=== PATIENT | female | born 1990 | race Caucasian/White ===

== ENCOUNTER 2019-04-09 08:19 | Emergency (ER) | payer BC, MEDICAID, SELFPAY ==
[2019-04-09] VITALS (11 sets, daily range): BP systolic 83–104; BP diastolic 54–69; PULSE 110–128; RESP 18–19; TEMP 38.3; O2SAT 96–99
--- NOTE | ~2019-04-09 | XR_ITS ---
EXAMINATION: XR chest 2V DATE: 04/09/2019 08:55 INDICATION: Cough. Influenza A. TECHNIQUE: Frontal and lateral views of the chest were obtained. COMPARISON: CT abdomen and pelvis 09/16/2018 FINDINGS: The chest demonstrates clear lungs without pneumonia, pleural effusion, or pneumothorax. Th e heart size is normal. Surgical clips in the right upper quadrant are likely from cholecystectomy. IMPRESSION: 1. No acute cardiopulmonary disease. Reviewed, dictated and finalized at location A. Y EQUIPMENT SPECIALIST
--- NOTE | 2019-04-09 08:29 | ED.URI ---
HPI - URI/Sore Throat General Chief Complaint: Upper Respiratory Infection Stated Complaint: FLU LIKE S/S Time Seen by Provider: 04/09/19 08:28 Source: patient Mode of arrival: ambulatory Limitations: no limitations History of Present Illness HPI Narrative: A 28 y/o female presents to the ED with c/o flu sx. Pt states that on 04/07/19 she started to have sore throat, MUNOZ, fever, dizziness, congestion, sneezing, cough, and SOB. She notes that a hot shower helped alleviate her symptoms, but she fell and almost passed out. Her son was sick last week with similar symptoms. She denies vomiting, ABD pain, and decreased liquid intake. Pt did not get a flu shot this year. Her fever is 101F in the ED. She checked into the ED with another patient with similar symptoms. MD elicited complaint: other (Flu sx) Onset (ago): day(s) (2) Consistency: constant Relieving factors: other (Hot shower) Context: sick contacts Associated symptoms: fever, headache, nasal congestion, sore throat, cough, shortness of breath and other (Dizziness, sneezing) Related Data Allergies Allergy/AdvReac Type Severity Reaction Status Date / Time No Known Allergies Allergy Unknown Verified 04/09/19 08:44 Review of Systems Review of Systems: Narrative: CONSTITUTIONAL: Denies chills, decreased liquid intake, or sweats. Reports fever. EYES: Denies visual changes, redness, or discharge. ENT: Denies rhinorrhea or otalgia. Reports sore throat, sneezing, and congestion. CARDIOVASCULAR: Denies chest pain, palpitations, or edema. RESPIRATORY: Reports cough or dyspnea. GASTROINTESTINAL: Denies abdominal pain, nausea, vomiting, or diarrhea. GENITOURINARY: Denies dysuria or hematuria. SKIN: Denies rash or itching. MUSCULOSKELETAL: Denies back pain, joint pain, or myalgia. NEUROLOGIC: Denies numbness or weakness. Reports headache and dizziness. All systems reviewed & are unremarkable except as noted in HPI and below PMFSH Past Medical History Medical History (Updated 04/09/19 @ 11:54 by Leonila Cuevas MD) Anemia Anxiety Asthma Bowel obstruction Chronic back pain Crohn's disease Depression Ulcer Surgical History Surgical History (Updated 04/09/19 @ 08:34 by Greta Figueroa) History of cholecystectomy History of removal of cyst Lymphadenectomy of arm Family History Family History Other Acute myocardial infarction Social History Social History (Updated 04/09/19 @ 08:34 by Greta Figueroa) Smoking status: Never smoker Alcohol intake: never Gender identity (if verbalized by the patient): Female Exam Narrative: Exam Narrative: GENERAL: Well-appearing, well-nourished, and in no acute distress. HEAD: Normocephalic, atraumatic. EYES: PERRLA and EOMI. ENT: Nares clear,+ rhinorrhea, + congestion, no epistaxis. Mucous membranes dry. NECK: Supple. CHEST: Clear to auscultation. No respiratory distress. HEART: tachycardic rate and rhythm. No murmur heard. Normal peripheral pulses. ABDOMEN: Soft, nontender, nondistended, normal active bowel sounds. EXTREMITIES: Normal range of motion. No edema. SKIN: Warm, dry, no rash. NEURO: No focal deficits. Alert and oriented X3. Course Course Emergency Course: Patient presented for evaluation of cough, cold symptoms. Patient states she has had not had anything to eat and drink in over 2 days. At the time of initial assessment, ABCs are intact and vital signs are notable for fever, borderline hypotension and tachycardia. Patient is positive for influenza A. No lactic acidosis. No UTI. No evidence of pneumonia on chest x-ray. No severe leukocytosis. Patient is hypokalemic and was given oral potassium replacement and oral able to tolerate this without vomiting. Patient was given 3 L of fluid, had improvement in her tachycardia, had maps that were consistently above 65. Patient felt improved at the time of reassessment, tolerating oral intake, no lightheadedness, no dizziness.
[2019-04-09] MEDS: SODIUM CHLORIDE 0.9% IV 1,000 ML 999 ML IV CONT ×3 (09:08→10:18)
[2019-04-09 09:10] LABS: Basophils Percent Auto 0.7 % (0.2-1.2); Hematocrit 29.7 % (37.0-47.0); Hemoglobin 8.2 g/dL (12.0-15.0); Immature Granulocyte Absolute 0.01 K/mm3 (0.00-0.031); Immature Granulocyte Percent A 0.2 % (0-0.5); Lymphocytes Absolute Auto 0.49 K/mm3 (0.9-3.2); Mean Corpuscular HGB Conc 27.6 g/dl (32-36); Mean Corpuscular Hemoglobin 18.2 pg (26-34); Mean Platelet Volume 9.7 fl (7.4-10.4); Monocytes Absolute Auto 0.8 K/mm3 (0.1-0.6); Neutrophils Absolute Auto 3.2 K/mm3 (1.3-6.7); Neutrophils Percent Auto 71.1 % (45.5-73.1); Platelet Count Result 332 k/mm3 (150-375); Red Cell Distribution Width 17.7 % (11.5-14.5); White Blood Count 4.5 K/mm3 (4.5-10.0)
[2019-04-09 09:21] LABS: Blood Urea Nitrogen 10 mg/dL (7-17); Calcium 8.3 mg/dL (8.4-10.2); Carbon Dioxide 22 mmol/L (22-30); Chloride 101 mmol/L (98-107); Estimated Glomerular Filt Rate > 60; Glucose 148 mg/dL (65-105); Potassium 2.9 mmol/L (3.4-5.0); Sodium 135 mmol/L (137-145)
[2019-04-09] MEDS: ONDANSETRON INJ 4 MG/2 ML VIAL IV PUSH (09:30)
[2019-04-09 09:36] LABS: Platelet Estimate Adequate (Adequate)
[2019-04-09 09:37] LABS: Hypochromasia 2+ (NORMAL)
[2019-04-09 09:38] LABS: Ovalocytes 2+ (NORMAL); Target Cells 1+ (NORMAL)
[2019-04-09 09:39] LABS: Stomatocytes 1+ (NORMAL)
[2019-04-09] MEDS: POTASSIUM CHLORIDE 20 MEQ PACKET (FOR LIQUID) 40 MEQ PO (10:18)
[2019-04-09 10:49] LABS: Add Urine Microscopic? YES; Appearance Urine Clear (Clear); Bacteria Urine Trace /hpf; Bilirubin Urine Negative (Negative); Blood Urine 3+ (Negative); Color Urine Yellow (Yellow); Glucose Urine UA Negative (Negative); Ketones Urine Negative (Negative); Leukocyte Esterase Ur Negative LEU/UL (Negative); Mucus Urine Rare /lpf; Nitrate Urine Negative (Negative); Protein Urine Negative (Negative); RBC Urine 0-2 /hpf (0-2); Specific Grav Ur 1.012 (1.001-1.035); Squamous Epithelial Cell Urine Moderate /hpf (Few); Urobilinogen Urine Negative mg/dL (<2.0); WBC Urine 0-3 /hpf
[2019-04-09 11:16] LABS: Lactic Acid Reflex < 0.5 mmol/L (0.7-2.1)
--- NOTE | 2019-04-09 12:00 | PC.NURSE ---
Pt received 1000 ml of fluids that stopped at 1115.
== END 2019-04-09 11:58 | disposition home or self-care (01) ==
PROVIDERS: Emergency Provider Emergency Medicine
DX: J10.1 Influenza due to other identified influenza virus with other respiratory manifestations (principal); D64.9 Anemia, unspecified; J45.909 Unspecified asthma, uncomplicated; K50.90 Crohn's disease, unspecified, without complications; E86.0 Dehydration
CPT/HCPCS: 36415; 71046; 80048; 81001; 81025; 83605; 85025; 87040; 87804; 96361; 96365; 96375; 99284; A9270; J0131; J2405; J7030

== ENCOUNTER 2019-06-23 16:38 | Outpatient (CLI) | payer BC, MEDICAID, SELFPAY ==
[2019-06-23 17:26] LABS: Basophils Absolute Auto 0.1 K/mm3 (0.0-0.1); Basophils Percent Auto 0.7 % (0.2-1.2); Eosinophils Absolute Auto 0.1 K/mm3 (0-0.3); Eosinophils Percent Auto 0.8 % (0-4.4); Hematocrit 32.6 % (37.0-47.0); Hemoglobin 9.4 g/dL (12.0-15.0); Immature Granulocyte Absolute 0.01 K/mm3 (0.00-0.031); Immature Granulocyte Percent A 0.1 % (0-0.5); Lymphocytes Absolute Auto 1.38 K/mm3 (0.9-3.2); Lymphocytes Percent Auto 19.3 % (18.3-44.2); Mean Corpuscular HGB Conc 28.8 g/dl (32-36); Mean Corpuscular Hemoglobin 20.8 pg (26-34); Mean Corpuscular Volume 72.1 fl (80-100); Mean Platelet Volume 9.2 fl (7.4-10.4); Monocytes Absolute Auto 0.7 K/mm3 (0.1-0.6); Monocytes Percent Auto 9.8 % (2.6-8.5); Neutrophils Percent Auto 69.3 % (45.5-73.1); Platelet Count Result 339 k/mm3 (150-375); Red Blood Count 4.52 M/mm3 (4.2-5.4); Red Cell Distribution Width 18.6 % (11.5-14.5); White Blood Count 7.2 K/mm3 (4.5-10.0)
[2019-06-23 17:34] LABS: Hypochromasia 1+ (NORMAL); Ovalocytes 1+ (NORMAL); Platelet Estimate Adequate (Adequate)
[2019-06-23 17:44] LABS: Alanine Aminotransferase 11 U/L (4-35); Albumin Level 3.9 g/dL (3.5-5.1); Alkaline Phosphatase 118 U/L (38-126); Aspartate Amino Transferase 19 U/L (14-36); Bilirubin,Total < 0.1 mg/dL (0.2-1.3); Blood Urea Nitrogen 8 mg/dL (7-17); CRP 0.6 mg/dL (<1.0); Calcium 8.4 mg/dL (8.4-10.2); Carbon Dioxide 27 mmol/L (22-30); Chloride 105 mmol/L (98-107); Estimated Glomerular Filt Rate > 60; Glucose 90 mg/dL (65-105); Potassium 4.2 mmol/L (3.4-5.0); Sodium 137 mmol/L (137-145)
[2019-06-23 18:26] LABS: Vitamin D 25 Hydroxy 24.1 ng/mL
[2019-06-23 18:41] LABS: Ferritin 7.49 ng/mL (6.24-137); Iron 29 ug/dL (37-170); Percent Iron Saturation 7 % (20-50)
[2019-06-23 19:27] LABS: Hepatitis B Surface Antigen Negative (Negative)
[2019-06-23 19:32] LABS: Hepatitis B Surface Anti Res Negative
[2019-06-28 02:25] LABS: Hepatitis B Core Ab Total Nonreactive (Nonreactive)
== END 2019-06-23 16:39 | disposition home or self-care (01) ==
DX: K50.012 Crohn's disease of small intestine with intestinal obstruction (principal); Z79.899 Other long term (current) drug therapy
CPT/HCPCS: 36415; 80053; 82306; 82607; 82728; 83540; 83550; 85025; 86140; 86704; 86706; 87340

== ENCOUNTER 2019-06-27 11:18 | Emergency (ER) | payer BC, MEDICAID, SELFPAY ==
[2019-06-27 11:20] VITALS: BP 104/75; PULSE 110; RESP 18; TEMP 37.2; O2SAT 100
[2019-06-27] MEDS: predniSONE 20 MG TABLET 60 MG PO (11:39)
--- NOTE | 2019-06-27 12:00 | ED.GENADULT ---
HPI - General Adult General Chief complaint: Upper Respiratory Infection <Yoel Bucio PA-C - Last Filed: 06/27/19 12:07> Stated complaint: st <Yoel Bucio PA-C - Last Filed: 06/27/19 12:07> Time Seen by Provider: 06/27/19 11:19 <MAN Nettles Last Filed: 06/27/19 12:07> Source: patient <MAN Nettles Last Filed: 06/27/19 12:07> Mode of arrival: ambulatory <MAN Nettles Last Filed: 06/27/19 12:07> Limitations: no limitations <Yoel Bucio PA-C - Last Filed: 06/27/19 12:07> History of Present Illness HPI narrative: Patient is a 28-year-old female who presents to emergency department for evaluation of sore throat noted is an aching pain worse with swallowing that is been present for the last several days patient also notes some mild ear discomfort patient on arrival notes that she has tried [id number] medications with some improvement of discomfort patient denies vomiting diarrhea or other URI symptoms or sick contacts and on arrival is resting comfortably in the room in no distress <Yoel Bucio PA-C - Last Filed: 06/27/19 12:07> Related Data Allergies/adverse reactions: Allergies Allergy/AdvReac Type Severity Reaction Status Date / Time No Known Allergies Allergy Unknown Verified 06/27/19 11:31 <Yoel Bucio PA-C - Last Filed: 06/27/19 12:07> Review of Systems Review of Systems: All systems reviewed & are unremarkable except as noted in HPI and below <Yoel Bucio PA-C - Last Filed: 06/27/19 12:07> PMF Past Medical History Medical History: Medical History Anemia Anxiety Asthma Bowel obstruction Chronic back pain Crohn's disease Depression Ulcer <MAN Nettles Last Filed: 06/27/19 12:07> Surgical History Surgical History: Surgical History History of cholecystectomy History of removal of cyst Lymphadenectomy of arm <Yoel Bucio PA-C - Last Filed: 06/27/19 12:07> Social History Social History: Social History Smoking status: Never smoker Alcohol intake: never Gender identity (if verbalized by the patient): Female <Yoel Bucio PA-C - Last Filed: 06/27/19 12:07> Exam Narrative: Exam Narrative: GENERAL: Well-appearing, well-nourished, and in no acute distress. HEAD: Normocephalic, atraumatic. EYES: PERRLA and EOMI. ENT: Nares clear, no rhinorrhea or epistaxis. Mucous membranes moist. Oropharynx with tonsillar hypertrophy and without exudate or other lesions. Bilateral TMs pearly wilson nonbulging NECK: Supple. Shotty anterior adenopathy CHEST: Clear to auscultation. No respiratory distress. No wheezes rales or rhonchi HEART: Regular rate and rhythm. No murmur heard. EXTREMITIES: Normal range of motion. No edema. SKIN: Warm, dry, no rash. NEURO: No focal deficits. Alert and oriented x3. Cranial nerves II through XII grossly intact PSYCH: Normal mood and affect. <MAN Nettles Last Filed: 06/27/19 12:07> Course Course Emergency Course: Patient aware of case findings treatment plan and diagnosis agreeing to follow-up as directed patient diagnosed with strep pharyngitis <MAN Nettles Last Filed: 06/27/19 12:07> Vital Signs Vital signs: Vital Signs Temperature 37.2 C 06/27/19 11:20 Pulse Rate 110 H 06/27/19 11:20 Respiratory Rate 18 06/27/19 11:20 Blood Pressure 104/75 06/27/19 11:20 Pulse Oximetry 100 06/27/19 11:20 Temperature 37.2 C 06/27/19 11:20 Pulse Rate 95 06/27/19 12:26 Respiratory Rate 18 06/27/19 12:26 Blood Pressure 110/77 06/27/19 12:26 Pulse Oximetry 100 06/27/19 12:26 <MAN Nettles Last Filed: 06/27/19 12:07> Vital Signs Temperature 37.2 C 06/27/19 11:20
[2019-06-27 12:26] VITALS: BP 110/77; PULSE 95; RESP 18; O2SAT 100
== END 2019-06-27 12:32 | disposition home or self-care (01) ==
PROVIDERS: Emergency Provider Emergency Medicine
DX: J02.0 Streptococcal pharyngitis (principal); Z86.2 Personal history of diseases of the blood and blood-forming organs and certain disorders involving the immune mechanism; K50.90 Crohn's disease, unspecified, without complications; J45.909 Unspecified asthma, uncomplicated
CPT/HCPCS: 87880; 99283; J7512

== ENCOUNTER 2020-04-12 11:32 | Emergency (ER) | payer OTHER, SELFPAY ==
[2020-04-12 11:45] VITALS: BP 107/69; PULSE 97; RESP 16; TEMP 37.1; O2SAT 100
--- NOTE | 2020-04-12 12:19 | ED.EYEPROB ---
HPI - Eye Problem General Chief complaint: Eye Problems Stated complaint: eye redness Source: patient Mode of arrival: ambulatory Limitations: no limitations History of Present Illness HPI Narrative: Patient is a 29-year-old female who presents complaining of right eye pain. Patient reports right eye redness x1 week. She reports increased pain x1 day. Reports pain level of 7/10 with eye movement. She reports a history of iritis in 2019. She denies blurred vision at this time. She denies injury. chief complaint: eye pain and eye redness Related Data Allergies Allergy/AdvReac Type Severity Reaction Status Date / Time No Known Allergies Allergy Unknown Verified 06/27/19 11:31 Review of Systems Review of Systems: Narrative: CONSTITUTIONAL: Denies fever, chills, or sweats. EYES: Right eye pain and redness ENT: Denies rhinorrhea, congestion, sore throat, or otalgia. CARDIOVASCULAR: Denies chest pain, palpitations, or edema. RESPIRATORY: Denies cough or dyspnea. GASTROINTESTINAL: Denies abdominal pain, nausea, vomiting, or diarrhea. GENITOURINARY: Denies dysuria or hematuria. SKIN: Denies rash or itching. MUSCULOSKELETAL: Denies back pain, joint pain, or myalgia. NEUROLOGIC: Denies headache, numbness, dizziness, or weakness. PSYCHIATRIC: Denies anxiety or depression. [facility] Past Medical History Medical History (Updated 04/12/20 @ 13:34 by JULISSA Okeefe) Anemia Anxiety Asthma Bowel obstruction Chronic back pain Crohn's disease Depression Iritis Ulcer Surgical History Surgical History History of cholecystectomy History of removal of cyst Lymphadenectomy of arm Family History Family History Other Acute myocardial infarction Social History Social History (Updated 04/12/20 @ 13:25 by JULISSA Okeefe) Smoking status: Never smoker Alcohol intake: never Substance use: never Gender identity (if verbalized by the patient): Female Comments At the time of signature, I have reviewed and agree with nursing past medical, surgical, social, and family history unless otherwise noted. Please see nursing chart for further information. There is no relevant family history pertinent to the presenting complaint. Exam Narrative: Exam Narrative: GENERAL: Well-appearing, well-nourished, and in no acute distress. HEAD: Normocephalic, atraumatic. EYES: Erythema to right eye, no purulent drainage or tearing noted. PERRL ENT: Mucous membranes pink and moist. CHEST: No respiratory distress. HEART: Regular rate and rhythm. EXTREMITIES: Normal range of motion. No edema. SKIN: Warm, dry, no rash. NEURO: No focal deficits. Alert and oriented x3. Gait steady. PSYCH: Normal affect. No signs of depression or anxiety. Course Vital Signs Vital signs: Vital Signs Temperature 37.1 C 04/12/20 11:45 Pulse Rate 97 04/12/20 11:45 Respiratory Rate 16 04/12/20 11:45 Blood Pressure 107/69 04/12/20 11:45 Pulse Oximetry 100 04/12/20 11:45 Temperature 37.1 C 04/12/20 11:45 Pulse Rate 97 04/12/20 11:45 Respiratory Rate 16 04/12/20 11:45 Blood Pressure 107/69 04/12/20 11:45 Pulse Oximetry 100 04/12/20 11:45 Reviewed Transfer Transfered to: [facility] (Ophthalmology clinic) Transfer rationale: Higher level of care Accepting physician: Dr. Arteaga Transfer comments: Patient was transferred by private vehicle. Patient is aware that she is going directly to ophthalmology clinic to see Dr. Arteaga. Patient is stable for discharge and transfer to [place] [facility] for further evaluation. MDM - Eye Problem MDM Narrative Medical decision making narrative: Patient most likely has iritis of right eye, right history of same in 01/26. Patient to be seen by [facility] at this time. Spoke with Dr. Arteaga who reports that she will see patient if patient comes direct
--- NOTE | 2020-04-12 12:53 | PC.NURSE ---
Spoke to [facility]. [facility] refuses to take patient due to insurance, opthomology resident paged and will return call to discuss patient disposition with DRUM BUILDER,
== END 2020-04-12 13:22 | disposition short-term general hospital (02) ==
PROVIDERS: Emergency Provider Nurse Practitioner
DX: H20.00 Unspecified acute and subacute iridocyclitis (principal); D64.9 Anemia, unspecified; J45.909 Unspecified asthma, uncomplicated; K50.90 Crohn's disease, unspecified, without complications
CPT/HCPCS: 99212; G0463

== ENCOUNTER 2021-01-12 20:58 | Observation (INO) | payer BC, OTHER, SELFPAY ==
--- NOTE | ~2021-01-12 | XR_ITS ---
EXAMINATION: XR abdomen/kub 1V DATE: 01/14/2021 08:05 INDICATION: Partial small bowel obstruction. TECHNIQUE: A supine view of the abdomen on 2 radiographs was obtained. COMPARISON: CT abdomen and pelvis 01/13/2021 FINDINGS: There are dilated loops of small bowel. The colon is normal in caliber. Surgical clips in t he right upper quadrant are likely from cholecystectomy. IMPRESSION: 1. Persistently dilated small bowel, consistent with partial small bowel obstruction. Reviewed, dictated and finalized at location A. O TAPE LIBRARIAN IMPRESSION: 1. Persistently dilated small bowel, consistent with partial small bowel obstru ction.
--- NOTE | ~2021-01-12 | CT_ITS ---
EXAMINATION: CT abdomen pelvis w con DATE: 01/13/2021 00:29 INDICATION: Diffuse abdominal pain, nausea and vomiting. Crohn's disease. TECHNIQUE: Computed tomography (CT) of the abdomen and pelvis was performed with 100 mL Omnipaque-350 intravenous contrast. Automated exposure control and iterative reconstruction technique were employe d. The dose-length product was 237.85 mGy-cm. COMPARISON: 09/16/2018 FINDINGS: Lung bases are clear. Heart size is normal. No pericardial or pleural effusion. Cholecystectomy clips at the gallbladder fossa. Liver, spleen, pancreas and bilateral adrenal glands and kidneys are martinez l. There is prominent wall thickening, mucosal enhancement and hyperemia to vasa recta involving the distal 30 cm the ileum consistent with flare of known Crohn's disease. There is mild elevation of mul tiple loops of more proximal gas and fluid-filled ileum which could relate to ileus or partial small bowel obstruction related to strictures of the more distal ileum. Fluid throughout the otherwise unre markable colon consistent with diarrhea. Bladder, uterus and bilateral adnexa are unremarkable. Small amount of ascites in the pelvis and at the caudal tip of the right hepatic lobe. No abscess or free intraperitoneal gas. No pathologically enlarged abdominal or pelvic lymphadenopathy. Relatively symme tric bilateral enteropathic sacroiliitis. Bones are otherwise unremarkable. IMPRESSION: 1. Ileus versus partial small bowel obstruction proximal to a 30 cm length of terminal ileitis with p ossible stricture consistent with flare of known history of Crohn's disease. 2. Bilateral enteropathic sacroiliitis. Reviewed, dictated and finalized at location B. IGINAL LIAISON OFFICER IMPRESSION: 1. Ileus versus partial small bowel obstruction proximal to a 30 cm length of t erminal ileitis with possible stricture consistent with flare of known history of Crohn's disease. 2. Bilateral enteropathic sacroiliitis.
[2021-01-12 21:07] VITALS: BP 117/80; PULSE 129; RESP 20; TEMP 36.4; O2SAT 95
--- NOTE | 2021-01-12 23:08 | ECG_ITS ---
Measurements Intervals [place] Rate: 75 P: 13 WY: 142 QRS: 62 QRSD: 80 T: 42 QT: 350 QTc: 393 Interpretive Statements SINUS RHYTHM NORMAL ECG Electronically Signed On 01-13-2021 5:36:27 [employer]OKERAGE OFFICE MANAGER by Sudhir Paris D.O.
--- NOTE | 2021-01-12 23:23 | ED.ABDPAIN ---
HPI - Abdominal Pain General Chief Complaint: Abdominal Pain Stated Complaint: I'm having a crohn's flare up - no GI Time Seen by Provider: 01/12/21 22:59 Source: patient History of Present Illness HPI narrative: Patient presents with nausea vomiting abdominal pain. Ports symptoms started last night. Symptoms appear to be getting worse so she came to the ER for evaluation. Abdominal pain is achy, constant, no clear aggravating or relieving factors, no radiation. Denies any blood or bile or melena stool or emesis. Reports history of Crohn's disease and is unsure if she is having a Crohn's flare. She isn't currently seeing a GI physician. Related Data Home Medications Medication Instructions Recorded Confirmed No Home Medications 01/12/21 01/12/21 Allergies Allergy/AdvReac Type Severity Reaction Status Date / Time No Known Allergies Allergy Unknown Verified 01/13/21 06:47 Review of Systems Review of Systems: CONSTITUTIONAL: Denies fever, chills, or sweats. EYES: Denies visual changes, redness, or discharge. ENT: Denies rhinorrhea, congestion, sore throat, or otalgia. CARDIOVASCULAR: Denies chest pain, palpitations, or edema. RESPIRATORY: Denies cough or dyspnea. GASTROINTESTINAL: Reports abdominal pain, nausea, vomiting, diarrhea GENITOURINARY: Denies dysuria or hematuria. SKIN: Denies rash or itching. MUSCULOSKELETAL: Denies back pain, joint pain, or myalgia. NEUROLOGIC: Denies headache, numbness, dizziness, or weakness. PSYCHIATRIC: Denies anxiety or depression. All systems reviewed & are unremarkable except as noted in HPI and below PMFSH Past Medical History Medical History Anemia Anxiety Asthma Bowel obstruction Chronic back pain Crohn's disease Depression Iritis Ulcer Surgical History Surgical History History of cholecystectomy History of removal of cyst Lymphadenectomy of arm Family History Family History (Updated 01/13/21 @ 06:51 by Genaro Morales RN) Grandparent Acute myocardial infarction Social History Social History Smoking status: Current every day smoker Tobacco type: e-cigarettes/vaping Alcohol intake: never Substance use: never Gender identity (if verbalized by the patient): Female Spiritual care concerns: No Exam Narrative: GENERAL: Well-appearing, well-nourished, and in no acute distress. HEAD: Normocephalic, atraumatic. EYES: PERRLA and EOMI. ENT: Nares clear, no rhinorrhea or epistaxis. Mucous membranes moist. NECK: Supple. No masses. No JVD CHEST: Clear to auscultation. No respiratory distress. No wheezes rales or rhonchi HEART: Regular rate and rhythm. No murmur heard. Normal peripheral pulses. ABDOMEN: Minimal pain with deep palpation diffusely no rebound or guarding soft, nondistended. EXTREMITIES: Normal range of motion. No edema. SKIN: Warm, dry, no rash. NEURO: No focal deficits. Alert and oriented x3. PSYCH: Normal mood and affect. Course Reevaluation(s) Reevaluation #1: Patient is resting comfortably symptoms improved but she continues to have abdominal pain nausea is also improved. Labs imaging reviewed with patient. CT was concerning for small bowel obstruction plan to admit patient for further monitoring. Date: 01/13/21 Time: 03:59 Consultations Consultation #1: Case discussed with general surgery onsite case manager recommended GI consultation. GI consulted. Plan to admit to the hospitalist team for further management. Date: 01/13/21 Time: 03:59 Vital Signs Vital signs: Vital Signs Temperature 36.4 C 01/12/21 21:07 Pulse Rate 129 H 01/12/21 21:07 Respiratory Rate 20 01/12/21 21:07 Blood Pressure 117/80 01/12/21 21:07 Pulse Oximetry 95 01/12/21 21:07 Temperature 36.4 C 01/12/21 21:07 Pulse Rate 77 01/13/21 05:53 Respiratory Rate 12 01/13/21 05:53
[2021-01-12] MEDS: ONDANSETRON INJ 4 MG/2 ML VIAL IV PUSH (23:37)
[2021-01-12] MEDS: SODIUM CHLORIDE 0.9% IV 1,000 ML 999 ML IV CONT (23:38)
[2021-01-12 23:40] LABS: Basophils Absolute Auto 0.1 K/mm3 (0.0-0.1); Basophils Percent Auto 0.6 % (0.2-1.2); Eosinophils Absolute Auto 0.1 K/mm3 (0-0.3); Eosinophils Percent Auto 0.8 % (0-4.4); Hematocrit 37.5 % (37.0-47.0); Hemoglobin 11.7 g/dL (12.0-15.0); Immature Granulocyte Absolute 0.03 K/mm3 (0.00-0.031); Immature Granulocyte Percent A 0.3 % (0-0.5); Lymphocytes Absolute Auto 1.25 K/mm3 (0.9-3.2); Lymphocytes Percent Auto 10.8 % (18.3-44.2); Mean Corpuscular HGB Conc 31.2 g/dl (32-36); Mean Corpuscular Hemoglobin 24.6 pg (26-34); Mean Corpuscular Volume 78.8 fl (80-100); Mean Platelet Volume 8.9 fl (7.4-10.4); Monocytes Absolute Auto 1.2 K/mm3 (0.1-0.6); Neutrophils Percent Auto 77.5 % (45.5-73.1); Platelet Count Result 391 k/mm3 (150-375); Red Blood Count 4.76 M/mm3 (4.2-5.4); Red Cell Distribution Width 16.1 % (11.5-14.5); White Blood Count 11.6 K/mm3 (4.5-10.0)
[2021-01-12 23:53] LABS: Add Urine Microscopic? YES; Appearance Urine Cloudy (Clear); Bilirubin Urine Negative (Negative); Blood Urine 3+ (Negative); Color Urine Yellow (Yellow); Glucose Urine UA Negative (Negative); Ketones Urine Trace mg/dL (Negative); Leukocyte Esterase Ur Trace LEU/UL (Negative); Mucus Urine Moderate /lpf; Nitrate Urine Negative (Negative); Protein Urine Negative (Negative); Specific Grav Ur 1.025 (1.001-1.035); Squamous Epithelial Cell Urine Many /hpf (Few); Urobilinogen Urine Negative mg/dL (<2.0)
[2021-01-12 23:57] LABS: Lactic Acid Reflex 0.7 mmol/L (0.7-2.1)
[2021-01-12 23:58] VITALS: BP 112/72; PULSE 86; RESP 14; O2SAT 100
[2021-01-12 23:59] LABS: Alanine Aminotransferase 18 U/L (4-35); Albumin Level 4.2 g/dL (3.5-5.1); Alkaline Phosphatase 125 U/L (38-126); Anion Gap 10 mmol/L (8-16); Aspartate Amino Transferase 23 U/L (14-36); Bilirubin,Total 0.5 mg/dL (0.2-1.3); Blood Urea Nitrogen 17 mg/dL (7-17); CRP 2.3 mg/dL (<1.0); Calcium 8.9 mg/dL (8.4-10.2); Carbon Dioxide 24 mmol/L (22-30); Chloride 100 mmol/L (98-107); Estimated CRCL calculation 82 ml/min; Estimated Glomerular Filt Rate > 60; Glucose 98 mg/dL (65-110); Lipase 112 U/L (23-300); Potassium 3.8 mmol/L (3.4-5.0); Sodium 134 mmol/L (137-145)
[2021-01-13 00:05] LABS: Erythrocyte Sedimentation Rate 23 mm/hr (0-20)
[2021-01-13 02:03] VITALS: BP 100/64; PULSE 74; RESP 17; O2SAT 98
[2021-01-13] MEDS: methylPREDNISolone SOD SUCC 125 MG VIAL IV PUSH (03:31)
[2021-01-13 03:33] VITALS: BP 117/71; PULSE 76; RESP 16; O2SAT 98
[2021-01-13 05:53] VITALS: BP 91/50; PULSE 77; RESP 12; O2SAT 99
--- NOTE | 2021-01-13 06:44 | ADMGEN ---
This patient, Marcelle Restrepo, was admitted to Medical Room 340-01. Patient/family oriented to hospital policies and general routines including ID bracelet, bed and alarms, visiting hours, pain management, procedures, bathroom and other care routines, personal items, smoking policy, room service/diet, and visiting hours. Information on how to activate the Rapid Response Team has been discussed. Patient/Family are encouraged to report perceived risks to care and to ask questions if they do not understand what they are told or what they should do.
[2021-01-13 06:55] VITALS: BMI 22.6
--- NOTE | 2021-01-13 08:19 | PM.IMHP ---
H&P: HPI History of Present Illness Date/Time: 01/13/21 08:19 Chief Complaint: Abdominal pain Narrative: Patient is a 22-year-old female who presents to the ED yesterday with nausea vomiting and abdominal pain. Symptoms started on Wednesday morning. She thought it was due to her periods however the location of the pain was more in the upper abdomen than lower. There was associated vomiting episode on Wednesday evening before she went to work that night. She also normally gets 3 bowel movements which are loose in consistency every day which is normal for her. On Wednesday afternoon she had multiple bowel movements which are watery without any blood approximately about 10 times during the day. While she was ready to go to work and Wednesday evening the payee pain got worse and hence came to the ER for evaluation. She reports the pain as achy and constant no aggravating or relieving factor no radiation. There is no blood in the stool. She reports history of Crohn's disease dated back 3 years ago when she came to the ER with similar abdominal pain and had a CT scan done which represented possible Crohn's disease. She has not regularly been following gastroenterologists since then though [facility] reports that she had a colonoscopy done 6 months ago in [facility] where it showed she had Crohn's disease however she has not followed up with a doctor since then. She denies any fever or chills Review of Systems Review of Systems: - CONSTITUTIONAL: Denies weight loss, fever and chills. - HEENT: Denies changes in vision and hearing - RESPIRATORY: Denies SOB and cough. - CV: Denies palpitations and CP. - GI: reports abdominal pain, nausea, vomiting and diarrhea. - : Denies dysuria and urinary frequency. - MSK: Denies myalgia and joint pain. - SKIN: Denies rash and pruritus. - NEUROLOGICAL: Denies headache and syncope. - PSYCHIATRIC: Denies recent changes in mood. Denies anxiety and depression. All systems reviewed & are unremarkable except as noted in HPI and below Constitutional: Constitutional: Reports fatigue and Reports weakness Neurologic: Reports weakness Endocrine: Endocrine: Reports fatigue [facility] Past Medical History Medical History (Updated 01/13/21 @ 09:36 by Santino Jarvis MD) Anemia Anxiety Asthma Bowel obstruction Chronic back pain Crohn's disease Depression Iritis Ulcer Surgical History Surgical History History of cholecystectomy History of removal of cyst Lymphadenectomy of arm Family History Family History (Updated 01/13/21 @ 06:51 by Genaro Morales RN) Grandparent Acute myocardial infarction Social History Social History Smoking status: Current every day smoker Tobacco type: e-cigarettes/vaping Alcohol intake: never Substance use: never Gender identity (if verbalized by the patient): Female Spiritual care concerns: No Meds Home Medications and Allergies Home Medications Medication Instructions Recorded Confirmed Type No Home Medications 01/12/21 01/12/21 History Allergies Allergy/AdvReac Type Severity Reaction Status Date / Time No Known Allergies Allergy Unknown Verified 01/13/21 06:47 Vital Signs Vital Signs - 24 hr 01/12/21 21:07 01/12/21 23:58 01/13/21 02:03 Temperature 97.6 F Pulse Rate 129 H 86 74 Respiratory Rate 20 14 17 Blood Pressure 117/80 112/72 100/64 Pulse Oximetry 95 100 98 01/13/21 03:33 01/13/21 05:53 Temperature Pulse Rate 76 77 Respiratory Rate 16 12 Blood Pressure 117/71 91/50 L Pulse Oximetry 98 99 Exam Narrative: GENERAL: Well-appearing, well-nourished, and in no acute distress. HEAD: Normocephalic, atraumatic. EYES: PERRLA and EOMI. ENT: Nares clear, no rhinorrhea or epistaxis. Mucous membranes moist. NECK: Supple. No masses. No JVD CHEST: Clear to auscultation. No respiratory
[2021-01-13] MEDS: SODIUM CHLORIDE 0.9% IV 1,000 ML 125 ML IV CONT (08:53)
[2021-01-13] MEDS: methylPREDNISolone SOD SUCC 125 MG VIAL 60 MG IV PUSH ×2 (11:41→16:45)
--- NOTE | 2021-01-13 12:36 | PM.CNGS ---
Assessment and Plan Assessment and plan (1) Partial small bowel obstruction: Code(s): K56.600 - Partial intestinal obstruction, unspecified as to cause Status: Acute Assessment and Plan: CT scan reviewed and discussed in detail with the patient. This appears to be a partial small bowel obstruction secondary to a Crohn's flare-up that is already resolving with medical management. The patient's abdominal exam is benign and she has had multiple episodes of diarrhea this morning. We would recommend to continue medical treatment for her Crohn's with the IV steroids and evaluation by GI. Okay to start the patient on a liquid diet from our standpoint. Would expect this to continue to improve and resolve with treatment of her Crohn's disease. No indication for surgical intervention at this time. We will continue to monitor with serial abdominal exams and repeat a KUB tomorrow morning. Thank you for allowing us to see the patient in consultation and we will continue to follow along with you. (2) Crohn's disease: Code(s): K50.90 - Crohn's disease, unspecified, without complications Status: Acute Assessment and Plan: Known history of Crohn's disease with her most recent colonoscopy reportedly about [address] Pond in [place]. She is not currently taking any medications and did not follow-up with him due to changes with her work schedule. Continue IV steroids. GI consulted, will await their recommendations. Additional Plan I have discussed the patient's case and plan of care with Dr. Mendieta. History of Present Illness Consult details Consult date: 01/13/21 Reason for consult: other (Partial small bowel obstruction, Crohn's disease) Requesting physician: Mehdi Bello MD Narrative: This is a 30-year-old female with a history of Crohn's disease who presented to the ER with complaints of abdominal pain and vomiting. She typically deals with loose stools daily, but noticed that over the past few days her stools have become more frequent and liquid. She estimates about 10 bowel movements in a day. She developed generalized cramping abdominal pain on Wednesday, two days ago, but initially thought this may be related to her menstrual cycle that recently started. The pain was persistent throughout the day and she developed nausea with one episode of vomiting. She denies bloody or coffee-ground emesis. The pain continued yesterday and she had another episode of vomiting. Due to the persistent symptoms, she presented to the ER for evaluation. CT scan of the abdomen and pelvis showed a partial small bowel obstruction versus ileus proximal to a 30 cm segment of terminal ileitis, consistent with a Crohn's flare-up with her known history. Labs showed a WBC count of 11,600. Her symptoms began improving in the ER. She did not have an NG tube placed. She was admitted to the Hospitalist service and has been started on IV methylprednisolone, IV fluids, and IV Zosyn. She is currently NPO. GI was consulted. Our service has been consulted by GI for the partial small bowel obstruction. The patient is now seen on the medical floor. Upon entering the room, she is actually sleeping and appears comfortable. She was easily arousable to name. She reports her abdominal pain has improved significantly, and has nearly resolved. She denies any nausea or vomiting since admission. She reports flatus and has had two liquid bowel movements this morning. She is unsure if there has been blood in her stool prior to admission, because she had not paid much attention, although has not noticed any blood in her BMs since being in the hospital. She reports being diagnosed with Crohn's about 3 years ago and has followed a [employer] Manager, Dr. Pond, through [facility] in [place]. Her last colonoscopy was about 6 months ago, which reportedly showed active inflammation from Crohn's. She believes he had given her a course of prednisone, but cannot recal
[2021-01-13 14:00] VITALS: BP 107/58; PULSE 76; RESP 16; TEMP 36.3; O2SAT 98
--- NOTE | 2021-01-13 17:34 | WPDGICN ---
Assessment and Plan Assessment and plan (1) Crohn's disease: Code(s): K50.90 - Crohn's disease, unspecified, without complications Status: Acute Assessment and Plan: she is here with flare up of Crohn's involving ileum, better with medical management she has never been on biologics. She discussed about stelara with her former GI doctor but never had the chance and just recently got a better medical insurance. will get TPMT activity, HBV and TB status. Definitely will need biologics (anti-tnf, entyvio, stelara, etc), advised to patient to get established with GI doctor sooner rather than later so she can start using biologic as outpatient otherwise will have more flare up and more complications. She is moving away soon and is planning to look for GI doctor in the town where she will relocate, she won't be able to come up here. (2) Partial small bowel obstruction: Code(s): K56.600 - Partial intestinal obstruction, unspecified as to cause Status: Acute Assessment and Plan: clinically better continue with iv steroids, empirically on abx liquid diet surgery evaluated patient (3) Abdominal pain: Qualifiers: Abdominal location: unspecified location Qualified Code(s): R10.9 - Unspecified abdominal pain Code(s): R10.9 - Unspecified abdominal pain Status: Acute Assessment and Plan: improved (4) Nausea & vomiting: Qualifiers: Vomiting type: unspecified Qualified Code(s): R11.2 - Nausea with vomiting, unspecified Code(s): R11.2 - Nausea with vomiting, unspecified Status: Acute (5) Diarrhea: Qualifiers: Diarrhea type: unspecified type Qualified Code(s): R19.7 - Diarrhea, unspecified Code(s): R19.7 - Diarrhea, unspecified Status: Acute GI Consult Note Consult date/time: 01/13/21 17:34 Reason for consult: crohn's flare up HPI: Marcelle Restrepo is a 30 year old female with history of Crohn's disease diagnosed about 3 years ago with her last colonoscopy about [address] Pond in [facility], she was told that had active disease but did not follow-up because change of insurance. She has never been on biologics. Last hospitalization when she was diagnosed with Crohn's about 3 years ago and last time used steroids several months ago. She came to the ER with severe abdominal pain and vomiting. At baseline she will have some loose stools but last few days more frequent loose stools and runny up to 10 a day. Then had more cramping with abdominal discomfort, also nausea and vomiting. CT scan of the abdomen and pelvis reviewed, showed a partial small bowel obstruction versus ileus proximal to a 30 cm segment of terminal ileitis, consistent with a Crohn's flare-up with her known history. Labs showed a WBC count of 11,600. She was admitted to the Hospitalist service and has been started on IV methylprednisolone, IV fluids, and IV Zosyn. She is feeling much better right now and pain is gone, tolerated liquid diet. She says that will move again in few more weeks to [facility] and then will try to find a GI doctor. Review of Systems Constitutional: Constitutional: Denies chills Eyes: Eyes: Denies blurry vision ENT: Reports Normal hearing present Cardiovascular: Cardiovascular: Denies chest pain Respiratory: Respiratory: Denies dyspnea Gastrointestinal: Gastrointestinal: Reports abdominal pain, Reports diarrhea, Reports nausea and Reports vomiting Genitourinary: Genitourinary: Denies hematuria Musculoskeletal: Musculoskeletal: Denies neck pain Integumentary/Breasts: Skin/Breast: Reports system reviewed and no additional complaints, except as docu Neurologic: Denies headache(s) Psychiatric: Psychiatric: Reports no additional psychiatric complaints PMFSH Past Medical History Medical History Anemia Anxiety Asthma Bowel obstruction Chronic back pain Crohn's disease D
[2021-01-13] MEDS: SODIUM CHLORIDE 0.9% IV 1,000 ML 80 ML IV CONT (18:06)
[2021-01-13 20:00] VITALS: PULSE 76; RESP 16; O2SAT 98
[2021-01-13] MEDS: ENOXAPARIN 30 MG/0.3 ML SYRINGE SUB-Q (20:08)
[2021-01-13 22:00] VITALS: BP 96/56; PULSE 69; RESP 21; TEMP 36.1; O2SAT 100
[2021-01-13] MEDS: methylPREDNISolone SOD SUCC 40 MG VIAL IV PUSH (22:02)
[2021-01-14 05:44] LABS: Basophils Percent Auto 0.1 % (0.2-1.2); Hematocrit 35.4 % (37.0-47.0); Hemoglobin 11.1 g/dL (12.0-15.0); Immature Granulocyte Absolute 0.12 K/mm3 (0.00-0.031); Immature Granulocyte Percent A 0.9 % (0-0.5); Lymphocytes Absolute Auto 0.94 K/mm3 (0.9-3.2); Lymphocytes Percent Auto 6.7 % (18.3-44.2); Mean Corpuscular HGB Conc 31.4 g/dl (32-36); Mean Corpuscular Hemoglobin 24.4 pg (26-34); Mean Corpuscular Volume 77.8 fl (80-100); Mean Platelet Volume 9.1 fl (7.4-10.4); Monocytes Absolute Auto 0.5 K/mm3 (0.1-0.6); Monocytes Percent Auto 3.6 % (2.6-8.5); Neutrophils Absolute Auto 12.5 K/mm3 (1.3-6.7); Neutrophils Percent Auto 88.7 % (45.5-73.1); Platelet Count Result 425 k/mm3 (150-375); Red Blood Count 4.55 M/mm3 (4.2-5.4); Red Cell Distribution Width 15.4 % (11.5-14.5); White Blood Count 14.1 K/mm3 (4.5-10.0)
[2021-01-14 06:00] VITALS: BP 118/65; PULSE 77; RESP 21; TEMP 36.2; O2SAT 100
[2021-01-14] MEDS: SODIUM CHLORIDE 0.9% IV 1,000 ML 80 ML IV CONT (06:12)
[2021-01-14] MEDS: methylPREDNISolone SOD SUCC 40 MG VIAL IV PUSH ×2 (06:12→13:15)
[2021-01-14 06:13] LABS: Alanine Aminotransferase 18 U/L (4-35); Alkaline Phosphatase 110 U/L (38-126); Anion Gap 9 mmol/L (8-16); Aspartate Amino Transferase 22 U/L (14-36); Bilirubin,Total 0.2 mg/dL (0.2-1.3); Blood Urea Nitrogen 9 mg/dL (7-17); Calcium 8.9 mg/dL (8.4-10.2); Carbon Dioxide 25 mmol/L (22-30); Chloride 102 mmol/L (98-107); Estimated CRCL calculation 93 ml/min; Estimated Glomerular Filt Rate > 60; Glucose 134 mg/dL (65-110); Potassium 3.9 mmol/L (3.4-5.0); Sodium 136 mmol/L (137-145)
[2021-01-14 06:38] LABS: Hepatitis B Surface Antigen Negative (Negative)
[2021-01-14 09:36] LABS: Iron 23 ug/dL (37-170)
[2021-01-14] MEDS: ENOXAPARIN 30 MG/0.3 ML SYRINGE SUB-Q (09:48)
[2021-01-14 09:50] LABS: Percent Iron Saturation 7 % (20-50)
[2021-01-14 09:59] LABS: Transferrin 253 mg/dL (206-381)
[2021-01-14 10:08] LABS: Thyroid Stimulating Hormone Reflex 0.589 uIU/mL (0.465-4.68)
[2021-01-14 10:54] LABS: Folic Acid 11.4 ng/mL (2.76->20)
--- NOTE | 2021-01-14 13:09 | PM.DS ---
DS: Admitting Diagnosis Discharge Date 01/14/21 Admitting Diagnosis Abd pain DS: Discharge Diagnosis Discharge Diagnosis (1) Crohn's disease: Code(s): K50.90 - Crohn's disease, unspecified, without complications Status: Acute Assessment and Plan: Patient is a 30-year-old woman with a history of Crohn's disease, not on long-term medication for, who presented emergency room with increased abdominal pain, diarrhea, nausea, vomiting. Initial vitals showed blood pressure 117/80, tachycardic heart rate 129, afebrile, normal oxygenation on room air. Initial labs showed slight leukocytosis at 11,600, elevated neutrophils at 77%, microcytic anemia with a hemoglobin of 11, hematocrit 37%, ESR elevated at 23. CRP elevated at 2.3. Lipase normal. Slight hyponatremia at 134. Normal renal function. Normal LFTs. Vitamin B12 folic acid are normal. TSH normal. Urinalysis consistent with contamination with many squamous cells. Abdominal CT pelvis showed ileus versus partial small-bowel obstruction proximal to a 30 cm length of terminal ileitis with possible stricture consistent with flare of known history of Crohn's disease. Patient was admitted to the hospital with acute Crohn's flare and started on IV antibiotics, IV steroids, IV pain medications, and consult to GI specialist. During her admission her pain improved after the IV steroids. She is no longer having any more diarrhea or pain. She was advancing her diet well and tolerated a low-fiber diet. Talked to GI specialist who felt comfortable with her being discharged with a prednisone taper 40 mg decreasing by 5 mg every week, continue oral antibiotics for another 3 days. It is recommended she follow-up with Dr. Baldwin in 1 week for further evaluation after discharge and hopefully get her started on new medications with biologics. Patient also need of primary care provider for further evaluation of her iron deficiency anemia. She is currently on her menstrual cycle so could be the cause of her low% saturation. Patient is stable at this time to be discharged. Follow-up instructions given. Return to ER warnings given. The patient understands agrees the plan all questions answered. DS: Summary Hospital Course Hospital Course: See above Status at Discharge Cognitive/behavioral status at discharge: Stable, improved. Time Spent with Patient Time attestation: Total time spent providing and/or coordinating discharge services: 42 Time spent: Greater than 30 minutes Exam Narrative: General: 30 year-old woman sitting up in bed eating lunch. Appears comfortable. In no acute distress. Skin: No jaundice or cyanosis. Good skin turgor. Neck: Full range of motion. Supple. Respiratory: Lungs are clear to auscultation bilaterally. No bony chest wall tenderness. Cardiovascular: The heart has a regular rate and rhythm without murmur. Lower extremities: No lower extremity edema. Distal pulses are easily palpated. No calf tenderness to palpation. Gastrointestinal: The abdomen is soft, nontender and nondistended with active bowel sounds. Psychiatric: Lucid and oriented. Memory intact. Neurologic: No focal deficits. Speech is clear. No facial drooping. DS: Data Data Completed and Pending Labs on day of discharge: Labs from last 24 hours 01/14/21 01/14/21 01/14/21 12:07 05:27 05:27 WBC RBC Hgb Hct MCV MCH MCHC RDW Plt Count MPV Immature Gran % (Auto) Neut % (Auto) Lymph % (Auto) Treasure % (Auto) Eos % (Auto) Baso % (Auto) Lymph # (Auto) Treasure # (Auto) Eos # (Auto) Baso # (Auto) Abs Immat Gran (auto) Absolute Neuts (auto) Absolute Nucleated RBC Nucleated RBC % Sodium Potassium Chloride Carbon Dioxide Anion Gap BUN Creatinine Estim Creat Clear Calc Estimated GFR Glucose Calcium Iron 23 L TIBC 3
--- NOTE | 2021-01-14 13:41 | PM.PNGS ---
Progress Note: A&P Assessment and Plan (1) Partial small bowel obstruction: Code(s): K56.600 - Partial intestinal obstruction, unspecified as to cause Status: Acute Assessment and Plan: Abdominal x-ray this morning still showed some dilated loops of small bowel, although patient has had significant clinical improvement. Her abdominal exam is benign. She is moving her bowels and tolerating full liquids. Okay to advance diet as tolerated. No indication for surgery. We will sign off at this time. Please let us know if there are any surgical needs in the future. (2) Crohn's disease: Code(s): K50.90 - Crohn's disease, unspecified, without complications Status: Acute Assessment and Plan: Continue steroids and management per GI. Additional Plan I have discussed the patient's case and plan of care with Dr. Mendieta. Subjective Subjective Date/Time Seen: 01/14/21 11:41 Patient reports: no new complaints, feels better, tolerating liquids well, flatus, bowel movement and afebrile Interval history: Patient seen and examined today. She reports feeling much better. No specific complaints. She denies abdominal pain, bloating, nausea, or vomiting. She reports lots of flatus today and had a BM overnight. Review of Systems Review of Systems: All systems reviewed & are unremarkable except as noted in HPI and below Gastrointestinal: Gastrointestinal: Reports as per HPI and Reports no additional gastrointestinal complaints Exam Const: General: comfortable, no acute distress, alert and awake GI: Inspection: non-distended GI Palp: Yes Soft to palpation, No Tenderness to palpation present (GI), No Guarding due to palpation present (GI), Yes No hepatosplenomegaly present and No Rebound tenderness present Auscultation: normal bowel sounds Neuro: General: moves all extremities and no focal motor deficits Extrem: General: normal to inspection Psych: Mental Status: mental status grossly normal Insight: Good insight present (Psych) Judgement: Good judgement present (Psych) Objective Data Vital Signs Vital Signs: Vital Signs - 24 hr 01/13/21 14:00 01/13/21 20:00 01/13/21 22:00 Temperature 97.4 F L 97.0 F L Pulse Rate 76 76 69 Respiratory Rate 16 16 21 H Blood Pressure 107/58 L 96/56 L Pulse Oximetry 98 98 100 01/14/21 06:00 Temperature 97.1 F L Pulse Rate 77 Respiratory Rate 21 H Blood Pressure 118/65 Pulse Oximetry 100 Intake/Output Intake/Output: Intake & Output 01/11/21 01/12/21 01/13/21 01/14/21 23:59 23:59 23:59 23:59 Intake Total 100 3010 2590 Balance 100 3010 2590 Meds/Results Medications: Active Medications Generic Name Dose Route Start Last Admin Trade Name Freq PRN Reason Stop Dose Admin Acetaminophen 500 mg 01/13/21 16:41 Acetaminophen 500 Mg Tablet PO Q6H PRN Mild Pain (1-3) or Fever Hydrocodone Bitart/Acetaminophen 1 tab 01/13/21 16:41 Hydrocodone/Acetaminophen (*Crx) 5-325 Mg Tablet PO Q4H PRN Pain Rated 4-6 Enoxaparin Sodium 30 mg 01/13/21 21:00 01/14/21 09:48 Enoxaparin 30 Mg/0.3 Ml Syringe SUB-Q 30 mg Q12HR KAYKAY Administration Piperacillin/Tazobactam/Dextrose 3.375 gm in 50 mls @ 100 mls/hr 01/13/21 10:00 01/14/21 10:17 Zosyn 3.375 Gm/D5w 50ml Pm IVPB Infused Q6H KAYKAY Infusion Methylprednisolone Sodium Succinate 40 mg 01/13/21 22:00 01/14/21 13:15 Methylprednisolone Sod Succ 40 Mg Vial IV PUSH 40 mg Q8HR KAYKAY Administration Morphine Sulfate 1 mg 01/13/21 16:41 Morphine Sulfate (*Crx) 2 Mg/Ml Inj IV PUSH Q2H PRN Pain Rated 4-6 Morphine Sulfate 2 mg 01/13/21 16:41 Morphine Sulfate (*Crx) 4 Mg/Ml Inj IV PUSH Q2H PRN Pain Rated 7-10 Ondansetron HCl 4 mg 01/13/21 05:29 Ondansetron Inj 4 Mg/2 Ml Vial IV PUSH Q4H PRN Nausea Radiology Results: ITS Impressions Abdomen/Pelvis CT 01/13/21 08:29 IMPRESSION: 1. Ileus versus partial small bowel o
[2021-01-14 13:50] VITALS: BP 131/68; PULSE 85; RESP 16; TEMP 36.6; O2SAT 100
--- NOTE | 2021-01-14 13:53 | WPDGIPROGNO ---
Progress Note: A&P Assessment and Plan (1) Crohn's disease: Code(s): K50.90 - Crohn's disease, unspecified, without complications Status: Acute Assessment and Plan: here with flare-up, she is back to her baseline, no more pain and tolerating diet she can go home with slow prednisone taper (start out 40mg daily and reduce 5 mg every week), also 3 more days of antibiotics HBV and TB status pending, she will need biologics and she is very well aware. She can follow-up in office but she says that is moving away soon, regardless she needs to see GI doctor in outpatient setting and then be on biologics in order to achieve remission of her Crohn's (2) Partial small bowel obstruction: Code(s): K56.600 - Partial intestinal obstruction, unspecified as to cause Status: Acute Assessment and Plan: resolved (3) Nausea & vomiting: Qualifiers: Vomiting type: unspecified Qualified Code(s): R11.2 - Nausea with vomiting, unspecified Code(s): R11.2 - Nausea with vomiting, unspecified Status: Acute Assessment and Plan: resolved (4) Abdominal pain: Qualifiers: Abdominal location: unspecified location Qualified Code(s): R10.9 - Unspecified abdominal pain Code(s): R10.9 - Unspecified abdominal pain Status: Acute Subjective Date/time seen: 01/14/21 13:53 Interval history: no more pain and tolerating diet, she is comfortable and feeling like going home Review of Systems Review of Systems: All systems reviewed & are unremarkable except as noted in HPI and below Exam Const: General: comfortable and no acute distress HENMT: General nose exam: Normal nares present Eyes: General: appearance normal, both eyes and all related structures Neck: Neck: no JVD Resp: Auscultation: clear to auscultation bilaterally Cardio: Rate: regular rate Rhythm: regular rhythm GI: Inspection: non-distended GI Palp: Yes Soft to palpation and No Guarding due to palpation present (GI) Auscultation: normal bowel sounds Skin: General skin exam: normal color Neuro: Speech: normal speech Motor exam (neuro): Normal motor muscle tone present throughout Extrem: General: normal to inspection Psych: Mental Status: mental status grossly normal Objective Data Vital Signs Vital Signs: Vital Signs - 24 hr 01/13/21 14:00 01/13/21 20:00 01/13/21 22:00 Temperature 97.4 F L 97.0 F L Pulse Rate 76 76 69 Respiratory Rate 16 16 21 H Blood Pressure 107/58 L 96/56 L Pulse Oximetry 98 98 100 01/14/21 06:00 01/14/21 13:50 Temperature 97.1 F L 97.8 F Pulse Rate 77 85 Respiratory Rate 21 H 16 Blood Pressure 118/65 131/68 Pulse Oximetry 100 100 Intake/Output Intake/Output: Intake & Output 01/11/21 01/12/21 01/13/21 01/14/21 23:59 23:59 23:59 23:59 Intake Total 100 3010 2590 Balance 100 3010 2590 Meds/Results Medications: Active Medications Generic Name Dose Route Start Last Admin Trade Name Freq PRN Reason Stop Dose Admin Acetaminophen 500 mg 01/13/21 16:41 Acetaminophen 500 Mg Tablet PO Q6H PRN Mild Pain (1-3) or Fever Hydrocodone Bitart/Acetaminophen 1 tab 01/13/21 16:41 Hydrocodone/Acetaminophen (*Crx) 5-325 Mg Tablet PO Q4H PRN Pain Rated 4-6 Enoxaparin Sodium 30 mg 01/13/21 21:00 01/14/21 09:48 Enoxaparin 30 Mg/0.3 Ml Syringe SUB-Q 30 mg Q12HR KAYKAY Administration Piperacillin/Tazobactam/Dextrose 3.375 gm in 50 mls @ 100 mls/hr 01/13/21 10:00 01/14/21 10:17 Zosyn 3.375 Gm/D5w 50ml Pm IVPB Infused Q6H KAYKAY Infusion Methylprednisolone Sodium Succinate 40 mg 01/13/21 22:00 01/14/21 13:15 Methylprednisolone Sod Succ 40 Mg Vial IV PUSH 40 mg Q8HR KAYKAY Administration Morphine Sulfate 1 mg 01/13/21 16:41 Morphine Sulfate (*Crx) 2 Mg/Ml Inj IV PUSH Q2H PRN Pain Rated 4-6 Morphine Sulfate 2 mg 01/13/21 16:41 Morphine Sulfate (*Crx) 4 Mg/Ml Inj IV PUSH Q2
[2021-01-17 05:21] LABS: Hepatitis B Core Ab Total Nonreactive (Nonreactive)
--- NOTE | 2021-01-20 14:34 | PC.NURSE ---
Stool cx negative
[2021-01-20 16:09] LABS: TPMT Activity 22
[2021-01-27 11:46] LABS: NIL 0.01 IU/mL; Quantiferon TB Plus, 1T Negative
== END 2021-01-14 17:49 | disposition home or self-care (01) ==
LOC: ANHED 01-13 04:04 → ANH3MED 01-13 06:01
PROVIDERS: Internal Medicine; Internal Medicine Gastroenterology; Physician Assistant; Admitting Provider Internal Medicine; Emergency Provider Emergency Medicine; Visit Provider Internal Medicine
DX: K50.90 Crohn's disease, unspecified, without complications (principal); M46.1 Sacroiliitis, not elsewhere classified; F17.290 Nicotine dependence, other tobacco product, uncomplicated; Z90.49 Acquired absence of other specified parts of digestive tract
CPT/HCPCS: 36415; 74018; 74177; 80053; 81001; 81025; 82607; 82657; 82728; 82746; 83540; 83550; 83605; 83690; 84443; 84466; 85025; 85652; 86140; 86480; 86704; 87015; 87045; 87086; 87088; 87177; 87209; 87269; 87272; 87340; 87427; 89055; 93005; 96361; 96365; 96366; 96367; 96372; 96374; 96375; 96376; 99285; G0378; J0131; J1650; J2405; J2543; J2920; J2930; J7030; Q9967